=== PATIENT | female | born 1995 | race Caucasian/White ===

== ENCOUNTER 2021-10-26 17:57 | Emergency (ER) | payer SELFPAY ==
[2021-10-26] MEDS ORDERED: Diphtheria,Pertussis(Acell),Tetanus Vaccine 0.5 ML Syringe IM ONE (18:44)
== END 2021-10-26 19:11 | disposition home or self-care (01) ==
LOC: CC.ED 17:57
DX: S62.522B Displaced fracture of distal phalanx of left thumb, initial encounter for open fracture (principal); Z23 Encounter for immunization; W23.1XXA Caught, crushed, jammed, or pinched between stationary objects, initial encounter; Y93.E9 Activity, other interior property and clothing maintenance
CPT/HCPCS: 73140-FA; 90471; 90715; 99283; 99283-25